=== PATIENT | female | born 1965 | race Caucasian/White ===

== ENCOUNTER → 2019-06-16 08:11 | Outpatient (CLI) | payer MEDICARE, MEDICAID ==
[2014-03-24 10:18] VITALS: BMI 22.0
[~2019-06-16 08:11] MED LIST: BIEST TOPICAL; CARAFATE1 G PO; CYCLOBENZAPRINE10 MG PO; DHEA TOPICAL; FETZIMA40 MG PO; LEVSIN/ANASP0.125 MG PO; NEURONTIN 300300 MG PO; PERCOCET 10/3251 TA1 PO; PRILOSEC20 MG PO; TOPAMAX50 MG PO; XANAX1 MG PO; [UNRECOGNIZED DRUG - MIXTURE] PO; [UNRECOGNIZED DRUG - OTHER] TOPICAL
[2019-06-16 09:55] LABS: BASOPHILS 0.2 % (0-2); EOSINOPHILS 1.3 % (0-7); HEMATOCRIT 44.8 % (36.0-48.0); HEMOGLOBIN 14.9 g/dL (12-16); IMMATURE GRANULOCYTES 0.2 % (0-5); LYMPHOCYTES 28.8 % (15-50); MCH 30.2 pg (26.0-34.0); MCHC 33.3 g/dL (31.0-37.0); MCV 90.9 fL (80.0-100.0); MEAN PLATELET VOLUME 9.3 fL (7.4-10.4); MONOCYTES 6.6 % (2-11); NEUTROPHILS 62.9 % (40-80); PLATELET COUNT 277 10x3/uL (130-400); RBC 4.93 10x6/uL (4.00-5.40); RDW 12.5 % (11.5-14.5); WBC 6.2 10x3/uL (4.8-10.8)
[2019-06-16 10:07] LABS: PROTIME 13.2 SECONDS (11.6-15.0)
[2019-06-16 10:21] LABS: ALBUMIN 4.3 g/dL (3.4-5.0); ALKALINE PHOSPHATASE 73 U/L (46-116); ALT (SGPT) 26 U/L (10-68); AMYLASE - SERUM 32 U/L (25-115); BILIRUBIN - TOTAL 0.59 mg/dL (0.2-1.3); CALC OSMOLALITY 277 mosm/kg (275-300); CALCIUM 8.9 mg/dL (8.5-10.1); CHLORIDE - SERUM 102 mmol/L (98-107); CREATININE - SERUM 0.8 mg/dL (0.6-1.3); GLUCOSE 89 mg/dL (74-106); LIPASE 66 U/L (73-393); POTASSIUM - SERUM 3.5 mmol/L (3.5-5.1); PROTEIN - SERUM 7.9 g/dL (6.4-8.2); SODIUM 139 mmol/L (136-145); T4 THYROXINE 8.4 ug/dL (4.7-13.3); THYROID STIMULATING HORMONE 1.18 uIU/mL (0.36-3.74); UREA NITROGEN 14 mg/dL (7-18); eGFR NON AFRICAN AMERICAN 80 mL/min (90-120)
== END | disposition home or self-care (01) ==
LOC: D.NM 06-12 11:30 → D.LAB 08:11 → D.US 08:30 → D.NM 09:00
PROVIDERS: ATTEND Internal Medicine Gastroenterology
DX: R10.9 Unspecified abdominal pain (principal); R10.13 Epigastric pain; R11.2 Nausea with vomiting, unspecified; T18.2XXA Foreign body in stomach, initial encounter

== ENCOUNTER → 2019-06-19 08:57 | Outpatient (CLI) | payer MEDICARE, MEDICAID ==
[2014-03-24 10:18] VITALS: BMI 22.0
== END | disposition home or self-care (01) ==
LOC: D.CT 06-18 09:30
PROVIDERS: ATTEND Internal Medicine Gastroenterology
DX: R10.9 Unspecified abdominal pain (principal); R10.13 Epigastric pain; T18.2XXA Foreign body in stomach, initial encounter; R11.2 Nausea with vomiting, unspecified

== ENCOUNTER → 2019-06-25 07:33 | Outpatient (CLI) | payer MEDICARE, MEDICAID ==
[2014-03-24 10:18] VITALS: BMI 22.0
== END | disposition home or self-care (01) ==
LOC: D.RAD 07:33
PROVIDERS: ATTEND Internal Medicine Gastroenterology
DX: R10.9 Unspecified abdominal pain (principal); R10.13 Epigastric pain; T18.2XXA Foreign body in stomach, initial encounter; R11.2 Nausea with vomiting, unspecified